=== PATIENT | male | born 1985 | race Caucasian/White ===

== ENCOUNTER 2021-01-15 18:19 | Emergency (ER) | payer BC ==
[~2021-01-15] VITALS: Ht 182.9 cm; Wt 108.9 kg
[2021-01-15 18:22] VITALS: BP 167/94
== END 2021-01-15 19:15 | disposition left against medical advice (07) ==
LOC: ER 18:21
DX: R51.9 Headache, unspecified (principal); Z53.21 Procedure and treatment not carried out due to patient leaving prior to being seen by health care provider